=== PATIENT | female | born 1955 | race Hispanic/Latino ===

== ENCOUNTER 2020-05-12 11:30 | Inpatient (IN) | payer OTHER ==
[~2020-05-12] VITALS: Ht 167.6 cm; Wt 96.7 kg
[2020-05-12] MEDS ORDERED: MORPHINE SULFATE INJ 4 MG/ML INJ 1ML IV STA ×2 (12:45→17:22)
[2020-05-12] MEDS ORDERED: PANTOPRAZOLE 40 MG 10ML VIAL IV STA (12:45)
[2020-05-12] MEDS ORDERED: SODIUM CHLORIDE 0.9% 1000ML 1,000 ML IV STA (12:45)
[2020-05-12] MEDS ORDERED: ONDANSETRON HCL INJ 2MG/ML 2ML 2 MG/ML VIAL IV STA ×2 (12:45→17:16)
[2020-05-12 12:54] LABS: BASOPHILS # (AUTO) 0.1 (0.0-0.1); BASOPHILS % 0.4 % (0.0-1.0); EOSINOPHILS % 0.2 % (0.0-6.0); HEMATOCRIT 39.7 % (34.2-44.1); LYMPHOCYTES # (AUTO) 2.6 (1.0-3.2); LYMPHOCYTES % 13.1 % (18.0-39.1); MEAN CORPUSCULAR HEMOGLOBIN 28.5 pg (28-32); MEAN CORPUSCULAR HGB CONC 32.7 g/dL (31-35); MEAN CORPUSCULAR VOLUME 87.1 fL (81-99); MONOCYTES # (AUTO) 0.9 (0.2-0.8); MONOCYTES % 4.6 % (4.4-11.3); NEUTROPHILS # (AUTO) 15.8 (2.1-6.9); NEUTROPHILS % 80.8 % (38.7-80.0); PLATELET COUNT 263 x10e3/uL (140-360); RED BLOOD COUNT 4.56 x10e6/uL (3.6-5.1); RED CELL DISTRIBUTION WIDTH 13.7 % (11.7-14.4)
[2020-05-12 13:00] LABS: INR 1.1; PROTHROMBIN TIME 14.8 seconds (11.9-14.5)
[2020-05-12 13:01] LABS: PARTIAL THROMBOPLASTIN TIME 33.4 seconds (23.8-35.5)
[2020-05-12 13:07] LABS: ALANINE AMINOTRANSFERASE 20 IU/L (0-55); ALBUMIN 4.1 g/dL (3.5-5.0); ALBUMIN/GLOBULIN RATIO 1.2 (0.8-2.0); ALKALINE PHOSPHATASE 76 IU/L (40-150); AMYLASE 31 U/L (25-125); ANION GAP 14.9 mmol/L (8-16); BLOOD UREA NITROGEN 15 mg/dL (7-26); BUN/CREATININE RATIO 20 (6-25); CALCIUM 8.8 mg/dL (8.4-10.2); CARBON DIOXIDE 25 mmol/L (22-29); CHLORIDE 104 mmol/L (98-107); CREATINE KINASE 53 IU/L (29-168); CREATININE, SERUM 0.74 mg/dL (0.57-1.11); EST GLOMERULAR FILTRATION RATE > 60 ML/MIN (60-); GLUCOSE 122 mg/dL (74-118); LIPASE 8 U/L (8-78); POTASSIUM 3.9 mmol/L (3.5-5.1); SODIUM 140 mmol/L (136-145)
--- NOTE | 2020-05-12 13:35 | Diagnostic Imaging Report ---
EXAMINATION: CHEST SINGLE (PORTABLE) INDICATION: Abdominal pain COMPARISON: None FINDINGS: LINES/TUBES:None LUNGS:The lungs are well-inflated. No focal consolidation or pulmonary edema. PLEURA:No pleural effusion or pneumothorax. MEDIASTINUM:The cardiomediastinal silhouette appears normal in size and shape. BONES/SOFT TISSUES:No acute osseous injury. ABDOMEN:No free air under the diaphragm. IMPRESSION: No focal pneumonia or pulmonary edema. Signed by: Breezy Gomez MD on 05/12/2020 1:32 PM
[2020-05-12] MEDS ORDERED: IOPAMIDOL 370 MG/ML 200 ML INFUS..BTL INJ ONE (13:38)
[2020-05-12] MEDS ORDERED: SODIUM CHLORIDE 0.9% 50ML 50 ML ONE (13:38)
--- NOTE | 2020-05-12 15:02 | Diagnostic Imaging Report ---
EXAMINATION: CT of the abdomen and pelvis with contrast. TECHNIQUE: Helical CT images of the abdomen and pelvis were performed from the lung bases to the lesser trochanters after the intravenous administration of 100 cc of Omnipaque 300 and the oral administration of none. Coronal and sagittal reformatted images were obtained. Dose modulation, iterative reconstruction, and/or weight based adjustment of the mA/kV was utilized to reduce the radiation dose to as low as reasonably achievable. COMPARISON: None. CLINICAL HISTORY:Abdominal pain DISCUSSION: ABDOMEN/PELVIS: LOWER THORAX:Unremarkable. HEPATOBILIARY: 1.6 cm enhancing lesion at the dome of the right hepatic lobe. No intra-or extrahepatic biliary ductal dilation. The gallbladder is normal. SPLEEN: No splenomegaly. PANCREAS: No focal masses or ductal dilatation. ADRENALS: No adrenal nodules. KIDNEYS/URETERS: 1 cm hypodensity in the left kidney likely proteinaceous cyst. No obstruction. PELVIC ORGANS/BLADDER: Bladder is normal. Hysterectomy. PERITONEUM/RETROPERITONEUM: 5 cm fluid collection in the pelvic cul-de-sac. LYMPH NODES: No intra-abdominal, retroperitoneal, pelvic or inguinal lymphadenopathy. VESSELS: Unremarkable. GI TRACT: Diverticulosis with inflammatory change involving the sigmoid colon with a 3.2 cm air/fluid collection. Axial image 70. BONES AND SOFT TISSUE: No bony destructive lesions. IMPRESSION: Complicated diverticulitis of the sigmoid colon with a pericolonic 3.2 cm air containing abscess. Additional 5 cm fluid collection/abscess in the pelvic cul-de-sac. After treatment, a screening colonoscopy recommended if not previously performed. A 1.6 cm enhancing nodule in the right superior hepatic lobe likely benign in the absence of known primary malignancy. A MRI of the abdomen with contrast may provide further characterization. Signed by: Dr. Jeffy Lundberg M.D. on 05/12/2020 2:59 PM
[2020-05-12 15:52] LABS: BILIRUBIN,URINE NEGATIVE (NEGATIVE); CLARITY,URINE SL CLOUDY (CLEAR); COLOR,URINE YELLOW (YELLOW); KETONES,URINE TRACE (NEGATIVE); LEUKOCYTE ESTERASE ,URINE NEGATIVE (NEGATIVE); NITRITE,URINE NEGATIVE (NEGATIVE); PROTEIN,URINE DIPSTICK 2+ (NEGATIVE); URINE UROBILINOGEN 0.2 mg/dL (0.2 - 1)
[2020-05-12 16:05] LABS: BACTERIA,URINE MODERATE /HPF; EPITHELIAL CELLS,URINE FEW /LPF
[2020-05-12] MEDS: METRONIDAZOLE 500MG/NS 100ML 100 ML IV SCH (17:37)
[2020-05-12] MEDS: PIPER-TAZ 3.375 GM 50 ML IV SCH ×2 (17:37→23:03)
--- NOTE | 2020-05-12 18:12 | Emergency Department Note ---
History of Present Illnes History of Present Illness Chief Complaint: Abdominal Complaints History of Present Illness This is a 65 year old female pt c/o lower abd pain that starts in llq and radiates across entire abd. pt denies any n/v/d. pt states pain is cramping and takes her breath away. Historian: Patient, Family Member Arrival Mode: Car Manager Lan Required: No Onset (how long ago): day(s) (3) Location: LOWER ABD Quality: PAIN Radiation: Reports non-radiation Severity: moderate Onset quality: gradual Timing of current episode: constant Progression: worsening Chronicity: new Context: Denies recent illness Relieving factors: none Exacerbating factors: none Associated symptoms: Reports denies other symptoms Treatments prior to arrival: none Past Medical/Family History Physician Review I have reviewed the patient's past medical and family history. Any updates have been documented here. Past Medical History Recent Fever: Yes Clinical Suspicion of Infectio: No New/Unexplained Change in Ment: No Past Medical History: Hypertension, Diabetes Past Surgical History: Hysterectomy Social History Smoking Cessation: Never Smoker Counseling Performed: No Alcohol Use: None Any Illegal Drug Use: No TB Exposure/Symptoms: No Physically hurt or threatened: No Family History Family history of heart diseas: No Other Any Pre-Existing Lines (PICC,: No Review of Systems Review of Systems Constitutional: Reports no symptoms EENTM: Reports no symptoms Cardiovascular: Reports no symptoms Respiratory: Reports no symptoms Gastrointestinal: Reports as per HPI Genitourinary: Reports no symptoms Musculoskeletal: Reports no symptoms Integumentary: Reports no symptoms Neurological: Reports no symptoms Psychological: Reports no symptoms Endocrine: Reports no symptoms Hematological/Lymphatic: Reports no symptoms Physical Exam Related Data Allergies: Coded Allergies: No Known Allergies (Unverified , 05/12/20) Triage Vital Signs Vital Signs Date Time Temp Pulse Resp B/P (MAP) Pulse Ox O2 Delivery O2 Flow Rate FiO2 05/12/20 12:00 99.8 102 20 128/65 98 Room Air Vital signs reviewed: Yes Physical Exam CONSTITUTIONAL Constitutional: Present well-developed, Present well-nourished, Present obese HENT HENT: Present normocephalic, Present atraumatic, Present oropharynx clear/moist, Present nose normal HENT L/R: Present left ext ear normal, Present right ext ear normal EYES Eyes: Reports PERRL, Reports conjunctivae normal NECK Neck: Present ROM normal PULMONARY Pulmonary: Present effort normal, Present breath sounds normal CARDIOVASCULAR Cardiovascular: Present regular rhythm, Present heart sounds normal, Present capillary refill normal, Present normal rate GASTROINTESTINAL Abdominal: Present soft, Present bowel sounds normal, Present tender (MODERATE TTP LLQ/SUPRAPUBIC AND LUQ, NO R/G); Absent mass GENITOURINARY Genitourinary: Present exam deferred SKIN Skin: Present warm, Present dry MUSCULOSKELETAL Musculoskeletal: Present ROM normal NEUROLOGICAL Neurological: Present alert, Present oriented x 3, Present no gross motor or sensory deficits PSYCHOLOGICAL Psychological: Present mood/affect normal, Present judgement normal Results Laboratory Result Diagram: 05/12/20 1207 05/12/20 1207 Laboratory Laboratory Tests Test 05/12/20 12:11 05/12/20 12:07 Urine Color Yellow (YELLOW) Urine Clarity Sl cloudy (CLEAR) Urine pH 6.5 (5 - 7) Urine Specific [place] 1.015 (1.010-1.025) Urine Protein 2+ (NEGATIVE) Urine Glucose (UA) Negative (NEGATIVE) Urine Ketones Trace (NEGATIVE) Urine Blood Moderate (NEGATIVE) Urine Nitrite Negative (NEGATIVE) Urine Bilirubin Negative (NEGATIVE) Urine Urobilinogen 0.2 mg/dL (0.2 - 1) Urine Leukocyte Esterase Negative (NEGATIVE) Urine RBC 11-20 /HPF (0-5) Urine WBC None /HPF (0-5) Urine Epithelial Cells Few /LPF (NONE) Urine Bacteria Moderate /HPF (NONE) White Blood Count 19.53 x10e3/uL (4.8-10.8) Red Blood Count 4.56 x10e6/uL (3.6-5.1) Hemoglobin 13.0 g/dL (12.0-16.0) Hematocrit 39.7 % (34.2-44.1) Mean Corpuscular Volume 87.1 fL (81-99) Mean Corpuscular Hemoglobin 28.5 pg (28-32) Mean Corpuscular Hemoglobin Concent 32.7 g/dL (31-35) Red Cell Distribution Width 13.7 % (11.7-14.4) Platelet Count 263 x10e3/uL (140-360) Neutrophils (%) (Auto) 80.8 % (38.7-80.0) Lymphocytes (%) (Auto) 13.1 % (18.0-39.1) Monocytes (%) (Auto) 4.6 % (4.4-11.3) Eosinophils (%) (Auto) 0.2 % (0.0-6.0) Basophils (%) (Auto) 0.4 % (0.0-1.0) Neutrophils # (Auto) 15.8 (2.1-6.9) Lymphocytes # (Auto) 2.6 (1.0-3.2) Monocytes # (Auto) 0.9 (0.2-0.8) Eosinophils # (Auto) 0.0 (0.0-0.4) Basophils # (Auto) 0.1 (0.0-0.1) Absolute Immature Granulocyte (auto 0.18 x10e3/uL (0-0.1) Prothrombin Time 14.8 seconds (11.9-14.5) Prothromb Time International Ratio 1.10 Activated Partial Thromboplast Time 33.4 seconds (23.8-35.5) Sodium Level 140 mmol/L (136-145) Potassium Level 3.9 mmol/L (3.5-5.1) Chloride Level 104 mmol/L (98-107) Carbon Dioxide Level 25 mmol/L (22-29) Anion Gap 14.9 mmol/L (8-16) Blood Urea Nitrogen 15 mg/dL (7-26) Creatinine 0.74 mg/dL (0.57-1.11) Estimat Glomerular Filtration Rate > 60 ML/MIN (60-) BUN/Creatinine Ratio 20 (6-25) Glucose Level 122 mg/dL (74-118) Calcium Level 8.8 mg/dL (8.4-10.2) Total Bilirubin 1.1 mg/dL (0.2-1.2) Aspartate Amino Transf (AST/SGOT) 15 IU/L (5-34) Alanine Aminotransferase (ALT/SGPT) 20 IU/L (0-55) Alkaline Phosphatase 76 IU/L (40-150) Creatine Kinase 53 IU/L (29-168) Creatine Kinase MB 1.00 ng/mL (0-5.0) Troponin I 0.003 ng/mL (0-0.300) Total Protein 7.5 g/dL (6.5-8.1) Albumin 4.1 g/dL (3.5-5.0) Globulin 3.4 g/dL (2.3-3.5) Albumin/Globulin Ratio 1.2 (0.8-2.0) Amylase Level 31 U/L (25-125) Lipase 8 U/L (8-78) Lab results reviewed: Yes Imaging Imaging results reviewed: Yes Procedures 12 Lead ECG Interpretation ECG Interpretation : ECG: ECG 1 Manager Lan: Interpreted by ED physician Date: May 12, 2020 Time: 13:23 Rhythm: sinus rhythm Rate: normal BPM: 96 QRS axis: normal ST segments normal: Yes T wave inversion: III T waves flattening: aVF, V3, V4, V5, V6 Clinical Impression: abnormal ECG Assessment & Plan Medical Decision Making MDM ABD PAIN - CBC, CHEM, UA, CT ABD/PELVIS - EVAL DIVERTICULITIS, RENAL STONE, UTI, COLITIS Reassessment Reassessment ADMIT TO JUICE, SPOKE WITH DR Demetra BRAVO Assessment & Plan Final Impression: (1) Abscess of sigmoid colon due to diverticulitis Depart Disposition: ADMITTED Last Vital Signs Date Time Temp Pulse Resp B/P (MAP) Pulse Ox O2 Delivery O2 Flow Rate FiO2 05/12/20 13:18 98.0 94 16 141/79 98 Room Air Medications in the ED Pantoprazole Sodium 40 mg ONCE STAT IV Last administered on 05/12/20at 13:16; Admin Dose 40 MG; Start 05/12/20 at 12:45; Stop 05/12/20 at 12:59; Status DC Morphine Sulfate 4 mg ONCE STAT IV Last administered on 05/12/20at 13:16; Admin Dose 4 MG; Start 05/12/20 at 12:45; Stop 05/12/20 at 12:58; Status DC Ondansetron HCl 4 mg ONCE STAT IV Last administered on 05/12/20at 13:16; Admin Dose 4 MG; Start 05/12/20 at 12:45; Stop 05/12/20 at 12:59; Status DC Sodium Chloride 1,000 ml @ 0 mls/hr Q0M STAT IV Last administered on 05/12/20at 13:16; Admin Dose 999 MLS/HR; Start 05/12/20 at 12:45; Stop 05/12/20 at 12:51; Status DC Sodium Chloride 50 ml @ STK-MED ONCE .ROUTE ; Start 05/12/20 at 13:38; Stop 05/12/20 at 13:32; Status DC Iopamidol 74,000 mg STK-MED ONCE INJ ; Start 05/12/20 at 13:38; Stop 05/12/20 at 13:32; Status DC Piperacillin Sod/ Tazobactam Sod 50 ml @ 100 mls/hr 0500,1100,1700,2300 IV Last administered on 05/12/20at 17:37; Admin Dose 100 MLS/HR; Start 05/12/20 at 17:20; Stop 05/19/20 at 17:19 Morphine Sulfate 4 mg NOW STAT IV Last administered on 05/12/20at 17:37; Admin Dose 4 MG; Start 05/12/20 at 17:22; Stop 05/12/20 at 17:23; Status DC Ondansetron HCl 4 mg NOW STAT IV Last administered on 05/12/20at 17:37; Admin Dose 4 MG; Start 05/12/20 at 17:16; Stop 05/12/20 at 17:23; Status DC DIGNA LUA MD May 12, 2020 18:12
--- NOTE | 2020-05-12 20:08 | NUR ---
[facility]-answering service paged to contact dr. santos.
--- NOTE | 2020-05-12 20:20 | NUR ---
Sheela DOS SANTOS RN SPEAKING TO DR. Wesley BRAVO AT THIS TIME; NEW ORDERS RECEIVED
[2020-05-12] MEDS: SODIUM CHLORIDE 0.9% 1000ML 1,000 ML IV SCH (20:30)
--- NOTE | 2020-05-12 20:30 | NUR ---
Dr. Camp informed of patients current temperature. Also, informed of all other vital signs. Obtained orders for tylenol suppository 650mg q4h [place] for fever above 101. In addition, informed that a lactic acid was not performed here in the ed. This nurse asked for an order for a lactic acid, Dr. Doherty agreed.
[2020-05-12] MEDS ORDERED: ACETAMINOPHEN 650 MG SUPP PR ONE (20:31)
[2020-05-12] MEDS: ACETAMINOPHEN 650 MG SUPP PR PRN (20:31)
[2020-05-12 22:00] VITALS: BP 129/53
[2020-05-12 23:00] VITALS: BP 129/53
[2020-05-12] MEDS ORDERED: METFORMIN HCL500 MG PO (23:25)
[2020-05-12] MEDS ORDERED: MOBIC15 MG PO (23:25)
[2020-05-12] MEDS ORDERED: LOSARTAN POTASS25 MG PO (23:25)
[2020-05-13] VITALS (8 sets, daily range): BP systolic 62–143; BP diastolic 52–67
[2020-05-13] MEDS: METRONIDAZOLE 500MG/NS 100ML 100 ML IV SCH ×5 (00:37→23:18)
[2020-05-13] MEDS: ACETAMINOPHEN 650 MG SUPP PR PRN ×3 (01:18→17:40)
[2020-05-13] MEDS: ONDANSETRON HCL INJ 2MG/ML 2ML 2 MG/ML VIAL IV PRN ×4 (02:08→22:25)
[2020-05-13] MEDS: MORPHINE SULFATE INJ 4 MG/ML INJ 1ML IV PRN ×4 (02:08→22:26)
[2020-05-13] MEDS: SODIUM CHLORIDE 0.9% 1000ML 1,000 ML IV SCH ×4 (04:50→22:08)
[2020-05-13] MEDS: PIPER-TAZ 3.375 GM 50 ML IV SCH ×3 (05:20→16:52)
[2020-05-13 06:31] LABS: BASOPHILS # (AUTO) 0.1 (0.0-0.1); BASOPHILS % 0.4 % (0.0-1.0); EOSINOPHILS # (AUTO) 0.1 (0.0-0.4); EOSINOPHILS % 0.6 % (0.0-6.0); HEMATOCRIT 36.9 % (34.2-44.1); HEMOGLOBIN 11.9 g/dL (12.0-16.0); LYMPHOCYTES # (AUTO) 3.3 (1.0-3.2); LYMPHOCYTES % 15.8 % (18.0-39.1); MEAN CORPUSCULAR HEMOGLOBIN 28.2 pg (28-32); MEAN CORPUSCULAR HGB CONC 32.2 g/dL (31-35); MEAN CORPUSCULAR VOLUME 87.4 fL (81-99); MONOCYTES # (AUTO) 1.4 (0.2-0.8); MONOCYTES % 6.6 % (4.4-11.3); NEUTROPHILS # (AUTO) 15.6 (2.1-6.9); NEUTROPHILS % 75.9 % (38.7-80.0); PLATELET COUNT 255 x10e3/uL (140-360); RED BLOOD COUNT 4.22 x10e6/uL (3.6-5.1); RED CELL DISTRIBUTION WIDTH 13.7 % (11.7-14.4)
--- NOTE | 2020-05-13 06:46 | NUR ---
RECEIVED BEDSIDE SHIFT REPORT FROM OFF GOING NURSE. PATIENT IS RESTING IN BED, NO ACUTE DISTRESS NOTED AT THIS TIME. CALL LIGHT WITHIN REACH. BED IN THE LOWEST POSITION.
[2020-05-13 06:52] LABS: ALANINE AMINOTRANSFERASE 14 IU/L (0-55); ALBUMIN 3.6 g/dL (3.5-5.0); ALBUMIN/GLOBULIN RATIO 1.2 (0.8-2.0); ALKALINE PHOSPHATASE 78 IU/L (40-150); ANION GAP 13.7 mmol/L (8-16); BLOOD UREA NITROGEN 9 mg/dL (7-26); BUN/CREATININE RATIO 13 (6-25); CALCIUM 8.1 mg/dL (8.4-10.2); CARBON DIOXIDE 24 mmol/L (22-29); CHLORIDE 103 mmol/L (98-107); CREATININE, SERUM 0.68 mg/dL (0.57-1.11); EST GLOMERULAR FILTRATION RATE > 60 ML/MIN (60-); GLUCOSE 110 mg/dL (74-118); POTASSIUM 3.7 mmol/L (3.5-5.1); SODIUM 137 mmol/L (136-145)
[2020-05-13] MEDS ORDERED: DEXTROSE 50% SYRINGE 50 ML IV PRN (09:15)
[2020-05-13] MEDS: INSULIN LISPRO 100 UNIT/1 ML 3ML VIAL SQ SCH ×3 (11:30→21:00)
--- NOTE | 2020-05-13 17:41 | NUR ---
VIVI ARTEAGA WITH ID ROUNDING ON PATIENT. NOTIFIED OF PATIENT'S TEMP OF 101.2. NO NEW ORDERS RECEIVED AT THIS TIME.
--- NOTE | 2020-05-13 19:25 | NUR ---
BEDSIDE SHIFT REPORT GIVEN TO ONCOMING NURSE. PATIENT IS IN STABLE CONDITION, NO ACUTE DISTRESS NOTED AT THIS TIME. CALL LIGHT WITHIN REACH. BED IN THE LOWEST POSITION.
[2020-05-13] MEDS ORDERED: CEFEPIME HCL 1 GM VIAL IV SCH (22:00)
[2020-05-13] MEDS: CEFEPIME 1GM/NS 0.9% 50 ML 50 ML IV SCH (22:08)
--- NOTE | 2020-05-13 23:08 | Consultation ---
DATE OF CONSULTATION: The patient is seen and evaluated. Discussed with Dr. Leung in details. HISTORY OF PRESENT ILLNESS: This is a pleasant 65-year-old female complained of abdominal pain for past three days. The patient is here. PCP was recommended to come to the hospital. The patient's radiology studies include a CT of abdomen and pelvis suggested complicated diverticulitis of the sigmoid colon with pericolic 3.2 cm air containing abscess. Additional 5 cm fluid collection/abscess in the pelvic cul-de-sac. The patient is seen by General surgery and diagnosed with perforated sigmoid diverticulitis and pelvic abscess with a plan for possible surgery tomorrow. Infectious Disease was consulted for the management of the antibiotics. PAST MEDICAL HISTORY: Diabetes, hypertension, and obesity. PAST SURGICAL HISTORY: Hysterectomy. ALLERGIES: NO KNOWN ALLERGIES. MEDICATIONS: Medication list reviewed. From ID point of view, the patient is on Flagyl and Zosyn. LABORATORY STUDIES: White count of 20.54, hemoglobin 11.9, and platelet 255. Sodium 137, potassium 3.7, and creatinine is 0.38. Serology: Coronavirus PCR COVID-19 pending. Blood culture also pending. REVIEW OF SYSTEMS: Some abdominal discomfort which has improved, but no nausea or vomiting. Complaining of fever. No chest pain or shortness of breath. No cough. PHYSICAL EXAMINATION: VITAL SIGNS: Blood pressure is 126/52, temperature is 101.2, pulse 104, and respirations 20. GENERAL: Awake and alert, in no acute distress on room air. Leaning on her right side. No distress. The patient is seen with the nurse. HEENT: Moist. No pallor. No JVD. CV: S1 and S2. CHEST: Equal expansion. Clear to auscultation in no acute distress. ABDOMEN: Obese soft. Discomfort in the left lower quadrant, but no rebound of any other regions of the abdomen. EXTREMITIES: Weak. ASSESSMENT AND PLAN: 1. Perforated diverticulitis. 2. Hypertension. 3. Diabetes. 4. Obesity. 5. Debility. 6. Pain. The patient is going on Flagyl, Zosyn. Await surgery possibly tomorrow. Concern sepsis on admission. Please refer to chart for more information. This case was discussed with Dr. Leung in detail. MD ADRIANA Cm/MOLLY /[id number]
[2020-05-14] VITALS (12 sets, daily range): BP systolic 139–159; BP diastolic 66–95
[2020-05-14] MEDS: SODIUM CHLORIDE 0.9% 1000ML 1,000 ML IV SCH ×3 (02:30→18:29)
[2020-05-14 05:40] LABS: BASOPHILS # (AUTO) 0.1 (0.0-0.1); BASOPHILS % 0.4 % (0.0-1.0); EOSINOPHILS # (AUTO) 0.2 (0.0-0.4); HEMATOCRIT 35.4 % (34.2-44.1); HEMOGLOBIN 11.6 g/dL (12.0-16.0); LYMPHOCYTES # (AUTO) 2.5 (1.0-3.2); LYMPHOCYTES % 14.3 % (18.0-39.1); MEAN CORPUSCULAR HEMOGLOBIN 28.4 pg (28-32); MEAN CORPUSCULAR HGB CONC 32.8 g/dL (31-35); MEAN CORPUSCULAR VOLUME 86.6 fL (81-99); MONOCYTES # (AUTO) 1.3 (0.2-0.8); MONOCYTES % 7.1 % (4.4-11.3); NEUTROPHILS # (AUTO) 13.6 (2.1-6.9); NEUTROPHILS % 76.6 % (38.7-80.0); PLATELET COUNT 251 x10e3/uL (140-360); RED BLOOD COUNT 4.09 x10e6/uL (3.6-5.1); RED CELL DISTRIBUTION WIDTH 13.4 % (11.7-14.4)
[2020-05-14] MEDS: CEFEPIME 1GM/NS 0.9% 50 ML 50 ML IV SCH ×3 (05:41→21:53)
[2020-05-14 06:06] LABS: ALANINE AMINOTRANSFERASE 16 IU/L (0-55); ALBUMIN 3.3 g/dL (3.5-5.0); ALKALINE PHOSPHATASE 89 IU/L (40-150); ANION GAP 14.6 mmol/L (8-16); BLOOD UREA NITROGEN 8 mg/dL (7-26); BUN/CREATININE RATIO 13 (6-25); CALCIUM 8.1 mg/dL (8.4-10.2); CARBON DIOXIDE 22 mmol/L (22-29); CHLORIDE 104 mmol/L (98-107); CREATININE, SERUM 0.62 mg/dL (0.57-1.11); EST GLOMERULAR FILTRATION RATE > 60 ML/MIN (60-); GLUCOSE 100 mg/dL (74-118); POTASSIUM 3.6 mmol/L (3.5-5.1); SODIUM 137 mmol/L (136-145)
--- NOTE | 2020-05-14 06:36 | NUR ---
RECEIVED BEDSIDE SHIFT REPORT FROM OFF GOING NURSE. PATIENT IS IN STABLE CONDITION, NO ACUTE DISTRESS NOTED AT THIS TIME. CALL LIGHT WITHIN REACH. BED IN THE LOWEST POSITION.
[2020-05-14] MEDS: METRONIDAZOLE 500MG/NS 100ML 100 ML IV SCH ×3 (06:43→18:29)
[2020-05-14] MEDS: INSULIN LISPRO 100 UNIT/1 ML 3ML VIAL SQ SCH ×2 (07:30→11:30)
[2020-05-14] MEDS: ACETAMINOPHEN 650 MG SUPP PR PRN (07:45)
[2020-05-14] MEDS ORDERED: HYDROMORPHONE 1MG/1ML INJ IV PRN (08:30)
--- NOTE | 2020-05-14 09:29 | Progress Note ---
DATE: 05/14/2020 SUBJECTIVE: Ms. Pineda is a 65-year-old female with history of diabetes, hypertension, and hyperlipidemia, who was seen in the clinic complaining of severe abdominal pain that started like one week prior to admission. After admission, CT scan showed diverticulitis with perforation and abscess formation. She was started on IV antibiotics, seen by surgeon and she is supposed to go for surgery probably today. PHYSICAL EXAMINATION: GENERAL: Today, she is awake and alert. VITAL SIGNS: Temperature is 99.1, blood pressure 148/80. HEART: Regular rate. LUNGS: Clear to auscultation. ABDOMEN: Distended and diffusely tender. LABORATORY DATA: On the blood work, white count is 17.77, hemoglobin 11.6, and hematocrit 35.4. COVID test came back negative. Potassium is 3.4, creatinine is 0.62, and glucose is 100. Blood culture so far negative. Abdominal and pelvic CT showed a diverticulitis with a 5 cm abscess in the cul-de-sac and a 3.2 cm air containing abscess in the sigmoid colon area. ASSESSMENT AND PLAN: On this patient is, 1. Acute diverticulitis with perforation and abscess formation. 2. Diabetes type 2 with hyperglycemia. 3. Hypertension. 4. Hyperlipidemia. 5. Obesity. The plan at present time is to continue IV fluids. The patient is n.p.o. She is on IV Zosyn and Flagyl. Continue sliding scale with insulin. Probably surgery today and the patient is being followed up by surgeon and by Infectious Disease. All this was discussed in detail with the patient. All questions were answered to satisfaction. Jimena Gonzalez MD CARMELLA/MODL /[id number]
--- NOTE | 2020-05-14 12:17 | NUR ---
PATIENT OFF UNIT FOR SURGERY AT THIS TIME. TELE MONITOR NOTIFIED.
--- NOTE | 2020-05-14 12:21 | NUR ---
PATIENT'S DAUGHTER NOTIFIED OF PATIENT GOING FOR PROCEDURE AND THE PROCEDURE THAT'S BEING DONE.
[2020-05-14] MEDS ORDERED: ROCURONIUM BROMIDE 10 MG/ML 5ML VIAL IV ONE (12:46)
[2020-05-14] MEDS ORDERED: ONDANSETRON HCL INJ 2MG/ML 2ML 2 MG/ML VIAL ONE (12:46)
[2020-05-14] MEDS ORDERED: PROPOFOL IV EMULSION 10 MG/ML 20 ML VIAL ONE (12:46)
[2020-05-14] MEDS ORDERED: DEXAMETHASONE SOD PHOS INJ 4 MG/ML VIAL ONE (12:46)
[2020-05-14] MEDS ORDERED: LIDOCAINE HCL 2% LOCAL INJ 5 ML SDV VIAL INJ ONE (12:46)
[2020-05-14] MEDS ORDERED: NEOSTIGMINE 1 MG/ML 10ML VIAL ONE (12:46)
[2020-05-14] MEDS ORDERED: SEVOFLURANE INHAL SOLN 250 ML PEN BTL ONE (12:46)
[2020-05-14] MEDS ORDERED: GLYCOPYRROLATE INJ 0.2 MG/ML VIAL ONE (12:46)
[2020-05-14] MEDS ORDERED: MIDAZOLAM HCL 2 MG/2 ML VIAL ONE (13:48)
[2020-05-14] MEDS ORDERED: FENTANYL CITRATE/PF 100MCG/2 ML INJ ONE ×2 (13:48→16:24)
[2020-05-14] MEDS: SODIUM CHLORIDE 0.9% 250ML IRRIG IR SCH ×2 (16:15→20:24)
[2020-05-14] MEDS ORDERED: NALOXONE HCL INJ 0.4 MG/ML AMP IV PRN (16:15)
[2020-05-14] MEDS ORDERED: HYDROMORPHONE 0.2MG/ML-SOD CHL 30ML PCA SYRINGE IV PRN (16:15)
[2020-05-14] MEDS ORDERED: DEXTROSE 50% SYRINGE 50 ML IV PRN (16:30)
[2020-05-14] MEDS ORDERED: HYDROMORPHONE 0.2MG/ML-SOD CHL 30ML PCA SYRINGE IV ONE (16:46)
--- NOTE | 2020-05-14 16:50 | NUR ---
PATIENT IS TO BE TRANSFERRED TO ROOM 188 AFTER SURGERY. REPORT CALLED IN TO RECEIVING NURSE @ [id number]. ALL PERSONAL BELONGINGS INCLUDING CELLPHONE TAKEN TO THE ROOM. RECEIVING NURSE AWARE.
[2020-05-14] MEDS: INSULIN REGULAR, HUMAN 100 UNIT/1 ML 3ML VIAL SQ SCH ×2 (18:00→23:58)
--- NOTE | 2020-05-14 18:20 | NUR ---
patient is a transfer from [facility] s/p exlap with colon resection and colostomy. stoma appear pink with no s/s of bleeding. RN encourage patient to make use of her order control clerk blood bank Dilaudid which she did and patient seems relieved. patient ng tube connected to wall suction and IV Fluid resume as ordered. Surgeon was at bedside to see patient.
[2020-05-14] MEDS: PANTOPRAZOLE 40 MG 10ML VIAL IV SCH (18:29)
--- NOTE | 2020-05-14 19:20 | NUR ---
Pt. drowsy, arouses easily. Oxygen on 2L per nasal cannula. Respirations are even and unlabored. NG tube to low suction. IV of Normal saline infusing into a 20 gauge saline lock to her R antecubital area at 125cc/hr. No redness or edema noted at site. Abd. dressing is clean,dry,intact. REGINO bulb is patent and intact draining serousanguineous drainage, compressed.Colostomy to her LUQ is patent,intact. Sifuentes catheter is patent and intact draining clear, yellow urine.
--- NOTE | 2020-05-14 20:16 | Progress Note ---
DATE: SUBJECTIVE: The patient is seen and evaluated. Available labs and notes reviewed. Discussed with Dr. Leung. The patient is just back from operating room and transferred to room 188. REVIEW OF SYSTEMS: Complaining of pain post surgery. The patient has a CONCRETE FOREMAN available. PHYSICAL EXAMINATION: VITAL SIGNS: Temperature 99.6, pulse 78, respirations 20, and blood pressure 144/70. GENERAL: Awake and alert. CV: S1 and S2. CHEST: Equal expansion. Clear to auscultation. No acute distress. ABDOMEN: Surgical wound dressed, on local care. Abdomen is with discomfort. EXTREMITIES: Weak. MEDICATIONS: Medication list reviewed. From ID point of view, the patient is on cefepime and Flagyl. LABORATORY STUDIES: White count improved from 20.54 to 17.77, hemoglobin of 11.6, and platelet count of 251. Sodium 137, potassium 3.6, and creatinine 0.62. Serology; coronavirus PCR not detected, 05/12/2020. MICROBIOLOGY: Blood culture negative. I do not have any cultures available from operating room yet if they sent any. IMAGING: No new radiology studies available. ASSESSMENT AND PLAN: 1. Perforated diverticulitis. The patient is status post exploratory laparotomy with sigmoid colectomy, end colostomy, and Alba pouch by Dr. Wesley Camp. 2. Hypertension. 3. Diabetes. 4. Obesity. 5. Debility. 6. Pain. 7. Antibiotics were changed to Flagyl and cefepime yesterday. Leukocytosis improved. Continue with antibiotics. Monitor the patient clinically and follow up with the labs. Please refer to chart for more information. Dictated by Tylor Bridges PA-C (Al) Kristen Leung MD /MODL /[id number]
--- NOTE | 2020-05-14 22:12 | Operative Report ---
DATE OF PROCEDURE: 05/14/2020 SURGEON: Nitin Camp MD PREOPERATIVE DIAGNOSIS: Perforated sigmoid diverticulitis with pelvic abscess. POSTOPERATIVE DIAGNOSIS: Perforated sigmoid diverticulitis with pelvic abscess. OPERATION PERFORMED: Exploratory laparotomy, sigmoid colectomy, end colostomy with Alba pouch, and drainage of peritoneal abscess and intraabdominal peritoneal lavage. DB2 SYSTEMS PROGRAMMER: Dr. Tre Camp. ANESTHESIA: General endotracheal. COMPLICATIONS: None. ESTIMATED BLOOD LOSS: 200 mL. DESCRIPTION OF PROCEDURE: With the patient lying in bed in the supine position under good general endotracheal anesthesia, the abdomen was prepped with Betadine solution and draped in the usual manner. A lower midline incision was made, it was carried down through the subcutaneous tissue and through the midline fascia. The peritoneum was opened and the abdomen was entered. Upon entering the abdominal cavity, showing anterior abdominal adhesions from the patient's previous lower abdominal surgery was encountered and these were all taken down and the abdomen was freed up and the omentum was retracted. Examination at this point revealed a mass in the sigmoid colon. There was an abscess in the pelvis that was entered and aspirated. The rest of the abdominal exploration appeared to be within normal limits. There was one loop of small bowel that was stuck to the sigmoid colon and this was from the inflammatory mass. After this was done, the left colon was then from the lateral gutter and divided at the level of the descending colon with an application of YAAKOV-75 stapler. The mesentery of the colon was then slowly and carefully divided distally all the way up to the lower sigmoid colon, at which point, colon was below the perforation and in good shape and was thus divided with another application of the [id number]-75 stapler. The mesentery was taken down with the EnSeal and the specimen was sent for pathological examination. After this was done, all the abdomen was then debrided, the abscess cavity was cleaned up. The abdomen was then copiously irrigated and perfect hemostasis was ascertained and all the excess fluid was aspirated. An opening was then made in the left upper quadrant to allow for passage of the colostomy and a cruciate incision was carried down through the rectus fascia. The posterior rectus sheath was opened and the tunnel was then dilated to accept the colon. The colon was then brought out through the colostomy site and brought to the outside without any tension. After this was done, the abdomen was then again irrigated. All the excess fluid was aspirated. A 10 flat Vernon-Vanegas drain was then placed in the cul-de-sac and brought out through the right lower quadrant and sutured to the skin with 2-0 silk and the abdomen was then closed in layers. The peritoneum was closed with a running suture of #1 Vicryl. The midline fascia was closed with a running suture of #1 Vicryl. Subcutaneous tissue was drained with a quarter-inch Bolton drain and approximated with 2-0 chromic and the skin was closed with clips. The colostomy was then isolated and matured using interrupted sutures of 3-0 Vicryl. An appliance was placed. A dressing was applied. The sponge, lap, and needle count were correct. The patient tolerated the procedure well and returned to the recovery room in stable condition. MD POPEYE Laureano/MOLLY /[id number]
--- NOTE | 2020-05-14 22:30 | NUR ---
Instructed pt. to do Incentive Spirometry at least every 2 hours while awake and explained to her the importance for her to do them.
[2020-05-15] VITALS (10 sets, daily range): BP systolic 116–151; BP diastolic 71–84
[2020-05-15] MEDS: SODIUM CHLORIDE 0.9% 250ML IRRIG IR SCH ×6 (00:46→20:31)
[2020-05-15 04:50] LABS: BASOPHILS % 0.2 % (0.0-1.0); HEMATOCRIT 35.7 % (34.2-44.1); HEMOGLOBIN 11.9 g/dL (12.0-16.0); LYMPHOCYTES # (AUTO) 1.6 (1.0-3.2); LYMPHOCYTES % 11.3 % (18.0-39.1); MEAN CORPUSCULAR HEMOGLOBIN 29.2 pg (28-32); MEAN CORPUSCULAR HGB CONC 33.3 g/dL (31-35); MEAN CORPUSCULAR VOLUME 87.5 fL (81-99); MONOCYTES # (AUTO) 1.2 (0.2-0.8); MONOCYTES % 8.3 % (4.4-11.3); NEUTROPHILS # (AUTO) 11.3 (2.1-6.9); NEUTROPHILS % 79.7 % (38.7-80.0); PLATELET COUNT 300 x10e3/uL (140-360); RED BLOOD COUNT 4.08 x10e6/uL (3.6-5.1); RED CELL DISTRIBUTION WIDTH 13.1 % (11.7-14.4)
[2020-05-15 05:11] LABS: BLOOD UREA NITROGEN 13 mg/dL (7-26); BUN/CREATININE RATIO 19 (6-25); CARBON DIOXIDE 23 mmol/L (22-29); CHLORIDE 103 mmol/L (98-107); CREATININE, SERUM 0.68 mg/dL (0.57-1.11); EST GLOMERULAR FILTRATION RATE > 60 ML/MIN (60-); GLUCOSE 133 mg/dL (74-118); SODIUM 138 mmol/L (136-145)
[2020-05-15] MEDS: CEFEPIME 1GM/NS 0.9% 50 ML 50 ML IV SCH ×3 (05:42→21:53)
[2020-05-15] MEDS: INSULIN REGULAR, HUMAN 100 UNIT/1 ML 3ML VIAL SQ SCH ×3 (06:00→18:00)
[2020-05-15] MEDS: SODIUM CHLORIDE 0.9% 1000ML 1,000 ML IV SCH ×3 (06:15→18:00)
[2020-05-15] MEDS: METRONIDAZOLE 500MG/NS 100ML 100 ML IV SCH ×7 (06:16→23:56)
[2020-05-15] MEDS: HYDROMORPHONE 1MG/1ML INJ IV PRN (09:07)
--- NOTE | 2020-05-15 13:28 | NUR ---
SUBJECTIVE: The patient is seen and evaluated. Available labs and notes reviewed. REVIEW OF SYSTEMS: Complaining of pain post surgery. 14 POINT ROS NEG UNLESS OTHERWISE NOTED PHYSICAL EXAMINATION: VITAL SIGNS: Temperature 99.6, pulse 78, respirations 20, and blood pressure 144/70. GENERAL: Awake and alert. CV: S1 and S2. CHEST: Equal expansion. Clear to auscultation. No acute distress. ABDOMEN: Surgical wound dressed, on local care. Abdomen is with discomfort. EXTREMITIES: Weak. MEDICATIONS: Medication list reviewed. From ID point of view, the patient is on cefepime and Flagyl. LABORATORY STUDIES: noted MICROBIOLOGY: Blood culture negative. I do not have any cultures available from operating room yet if they sent any. IMAGING: No new radiology studies available. ASSESSMENT AND PLAN: 1. Perforated diverticulitis. The patient is status post exploratory laparotomy with sigmoid colectomy, end colostomy, and Alba pouch by Dr. Wesley Camp. 2. Hypertension. 3. Diabetes. 4. Obesity. 5. Debility. 6. Pain. Antibiotics were changed to Flagyl and cefepime. Leukocytosis improved. Continue with antibiotics. Monitor the patient clinically and follow up with the labs. Please refer to chart for more information.
[2020-05-15] MEDS: PANTOPRAZOLE 40 MG 10ML VIAL IV SCH (20:16)
[2020-05-16] VITALS (9 sets, daily range): BP systolic 131–174; BP diastolic 78–98
[2020-05-16] MEDS: SODIUM CHLORIDE 0.9% 250ML IRRIG IR SCH ×8 (00:28→22:03)
[2020-05-16] MEDS: SODIUM CHLORIDE 0.9% 1000ML 1,000 ML IV SCH ×3 (05:50→18:00)
[2020-05-16] MEDS: CEFEPIME 1GM/NS 0.9% 50 ML 50 ML IV SCH ×3 (05:51→22:15)
[2020-05-16] MEDS: INSULIN REGULAR, HUMAN 100 UNIT/1 ML 3ML VIAL SQ SCH ×4 (06:00→18:00)
[2020-05-16 06:03] LABS: BASOPHILS # (AUTO) 0.1 (0.0-0.1); BASOPHILS % 0.6 % (0.0-1.0); EOSINOPHILS # (AUTO) 0.2 (0.0-0.4); EOSINOPHILS % 1.9 % (0.0-6.0); LYMPHOCYTES # (AUTO) 2.8 (1.0-3.2); LYMPHOCYTES % 23.8 % (18.0-39.1); MEAN CORPUSCULAR HEMOGLOBIN 28.3 pg (28-32); MEAN CORPUSCULAR HGB CONC 32.4 g/dL (31-35); MEAN CORPUSCULAR VOLUME 87.4 fL (81-99); MONOCYTES # (AUTO) 1.4 (0.2-0.8); NEUTROPHILS # (AUTO) 7.1 (2.1-6.9); PLATELET COUNT 284 x10e3/uL (140-360); RED BLOOD COUNT 3.89 x10e6/uL (3.6-5.1); RED CELL DISTRIBUTION WIDTH 13.5 % (11.7-14.4)
[2020-05-16 06:23] LABS: ANION GAP 12.7 mmol/L (8-16); BLOOD UREA NITROGEN 13 mg/dL (7-26); BUN/CREATININE RATIO 22 (6-25); CALCIUM 8.2 mg/dL (8.4-10.2); CARBON DIOXIDE 27 mmol/L (22-29); CHLORIDE 103 mmol/L (98-107); CREATININE, SERUM 0.58 mg/dL (0.57-1.11); EST GLOMERULAR FILTRATION RATE > 60 ML/MIN (60-); GLUCOSE 108 mg/dL (74-118); POTASSIUM 3.7 mmol/L (3.5-5.1); SODIUM 139 mmol/L (136-145)
[2020-05-16] MEDS: METRONIDAZOLE 500MG/NS 100ML 100 ML IV SCH ×3 (06:33→18:23)
[2020-05-16] MEDS ORDERED: METOPROLOL TARTRATE INJ 1 MG/ML VIAL IV PRN (10:45)
--- NOTE | 2020-05-16 11:07 | NUR ---
INFECTIOUS DISEASE PROGRESS NOTE DR. FEDERICO LANDIS SUBJECTIVE: The patient is seen and evaluated. Available labs and notes reviewed. REVIEW OF SYSTEMS: Complaining of pain post surgery. 14 POINT ROS NEG UNLESS OTHERWISE NOTED PHYSICAL EXAMINATION: VITAL SIGNS: reviewed GENERAL: Awake and alert. CV: S1 and S2. CHEST: Equal expansion. Clear to auscultation. No acute distress. ABDOMEN: Surgical wound dressed, on local care. Abdomen is with discomfort. EXTREMITIES: Weak. MEDICATIONS: Medication list reviewed. From ID point of view, the patient is on cefepime and Flagyl. LABORATORY STUDIES: noted MICROBIOLOGY: Blood culture negative. I do not have any cultures available from operating room yet if they sent any. IMAGING: No new radiology studies available. ASSESSMENT AND PLAN: 1. Perforated diverticulitis. The patient is status post exploratory laparotomy with sigmoid colectomy, end colostomy, and Alba pouch by Dr. Wesley Camp. 2. Hypertension. 3. Diabetes. 4. Obesity. 5. Debility. 6. Pain. Antibiotics were changed to Flagyl and cefepime. Leukocytosis improved. Continue with antibiotics. Monitor the patient clinically and follow up with the labs.
[2020-05-16] MEDS: ACETAMINOPHEN 650 MG SUPP PR PRN ×2 (12:00→14:55)
--- OUTSIDE RECORDS SUMMARY | 2020-05-16 15:44 | XMS REPORT | Continuity of Care Document ---
Author Author [facility] t Organization [facility] Address [address] [place] [address] Dr. Tripp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 Allergies, Adverse Reactions, Alerts This patient has no known allergies or adverse reactions. Medications This patient has no known medications. Procedures This patient has no known procedures. Results Test Description Test Time Test Comments Results Result Comments Source CT ABDOMEN/PELVIS W 2020-05-12 14:49:00 [place] [address] Patient Name: ROBERTO IVEY MR #: [id number] : 1955 Age/Sex: 65/F Req #: [id number] Adm Physician: Ordered by: DIGNA LUA MD Report #: [id number] Location: ER Room/Bed: Procedure: [id number] CT/CT ABDOMEN/PELVIS W Exam Date: 05/12/20 Exam Time: 1400 REPORT STATUS: Signed EXAMINATION: CT of the abdomen and pelvis with contrast. TECHNIQUE: Helical CT images of the abdomen and pelvis were performed from the lung bases to the lesser trochanters after the intravenous administration of 100 cc of Omnipaque 300 and the oral administr ation of none. Coronal and sagittal reformatted images were obtained. Dose modulation, iterative reconstruction, and/or weight based adjustment of the mA/kV was utilized to reduce the radiation dose to as low as reasonably achievable. COMPARISON: None. CLINICAL HISTORY:Abdominal pain DISCUSSION: ABDOMEN/PELVIS: LOWER THORAX:Unremarkable. HEPATOBILIARY: 1.6 cm enhancing lesion at the dome of the right hepatic lobe. No intra-or extrahepatic biliary ductal dilation. The gallbladder is normal. SPLEEN: No splenomegaly. PANCREAS: No focal masses or ductal dilatation. ADRENALS: No adrenal nodules. KIDNEYS/URETERS: 1 cm hypodensity in the left kidney likely proteinaceous cyst. No obstruction. PELVIC ORGANS/BLADDER: Bladder is normal. Hysterectomy. PERITONEUM/RETROPERITONEUM: 5 cm fluid collection in the pelvic cul-de-sac. LYMPH NODES: No intra-abdominal, retroperitoneal, pelvic or inguinal lymphadenopathy. VESSELS: Unremarkable. GI TRACT: Diverticulosis with inflammatory change involving the sigmoid colon with a 3.2 cm air/fluid collection. Axial image 70. BONES AND SOFT TISSUE: No bony destructive lesions. IMPRESSION: Complicated diverticulitis of the sigmoid colon with a pericolonic 3.2 cm air containing abscess. Additional 5 cm fluid collection/abscess in the pelvic cul-de-sac. After treatment, a screening colonoscopy recommended if not previously performed. A 1.6 cm enhancing nodule in the right superior hepatic lobe likely benign in the absence of known primary malignancy. A MRI of the abdomen with contrast may provide further characterization. Signed by: Dr. Brian Kovacs M.D. on 05/12/2020 2:59 PM Dictated By: BRIAN KOVACS MD 58 Transcribed By: GUS on 05/12/201458 COPY TO: DIGNA LUA MD CHEST SINGLE (PORTABLE) 2020-05-12 13:31:00 [place] [address] Patient Name: ROBERTO IVEY MR #: [id number] : 1955 Age/Sex: 65/F Req #: [id number] Adm Physician: Ordered by: DIGNA LUA MD Report #: [id number] Location: ER Room/Bed: Procedure: [id number] DX/CHEST SINGLE (PORTABLE) Exam Date: 05/12/20 Exam Time: 1310 REPORT STATUS: Signed EXAMINATION: CHEST SINGLE (PORTABLE) INDICATION: Abdominal pain COMPARISON: None FINDINGS: LINES/TUBES:None LUNGS:The lungs are well-inflated. No focal consolidation or pulmonary edema. PLEURA:No pleural effusion or pneumothora x. MEDIASTINUM:The cardiomediastinal silhouette appears normal in size and shape. BONES/SOFT TISSUES:No acute osseous injury. ABDOMEN:No free air under the diaphragm. IMPRESSION: No focal pneumonia or pulmonary edema. Signed by: Giovanna Oleary MD on 05/12/2020 1:32 PM Dictated By: GIOVANNA OLEARY MD 133 Transcribed By: GUS on 05/12/20 133 COPY TO: DIGNA LUA MD
[2020-05-16] MEDS: PANTOPRAZOLE 40 MG 10ML VIAL IV SCH (17:17)
[2020-05-16] MEDS: ONDANSETRON HCL INJ 2MG/ML 2ML 2 MG/ML VIAL IV PRN ×2 (17:30→23:10)
--- NOTE | 2020-05-16 19:30 | NUR ---
Pt. alert and oriented x3. Oxygen on 2L per nasal cannula. Respirations are even and unlabored. NG tube to low suction draining light brown drainage. Abd. dressing is clean,dry,intact. REGINO bulb is compressed draining serousanguinous drainage. IV of Normal saline infusing into 20 gauge to her R wrist at 125 cc/hr. No redness or edema noted at site. Sifuentes catheter is patent and intact draining barbara urine.
--- NOTE | 2020-05-16 20:24 | NUR ---
Report given to Heaven KAMARA.
--- NOTE | 2020-05-16 20:40 | NUR ---
PT ARRIVED BY HOSPITAL BED, AAOX3, RR EVEN AND NON-LABORED, O2 BY NC AT 2L. NO S/SX OF DISTRESS NOTED. DRESSING TO ANTERIOR ABD NOTED TO BE CDI WITH COLOSTOMY AND REGINO DRAIN. NGT CONNECTED TO LCS. ORIENTED PT TO HOSPITAL ROOM, CALL LIGHT, PHONE, BED CONTROLS AND LIGHTS. LEFT PT LAYING SEMI FOWLERS IN BED, BED IN LOW LOCKED POSITION, SIDE RAILS UPX2, CALL LIGHT AND PHONE WITHIN REACH.
--- NOTE | 2020-05-16 21:00 | NUR ---
Transferred pt. to room 101 via bed.
[2020-05-16] MEDS: HYDROMORPHONE 1MG/1ML INJ IV PRN (23:10)
[2020-05-17] VITALS (8 sets, daily range): BP systolic 153–173; BP diastolic 81–99
[2020-05-17] MEDS: METRONIDAZOLE 500MG/NS 100ML 100 ML IV SCH ×4 (00:37→17:24)
[2020-05-17] MEDS: SODIUM CHLORIDE 0.9% 250ML IRRIG IR SCH ×6 (02:19→22:15)
[2020-05-17] MEDS: ONDANSETRON HCL INJ 2MG/ML 2ML 2 MG/ML VIAL IV PRN ×3 (03:28→21:22)
[2020-05-17] MEDS: HYDROMORPHONE 1MG/1ML INJ IV PRN ×6 (03:28→21:27)
[2020-05-17] MEDS: SODIUM CHLORIDE 0.9% 1000ML 1,000 ML IV SCH ×3 (03:28→21:20)
[2020-05-17 05:15] LABS: BASOPHILS # (AUTO) 0.1 (0.0-0.1); BASOPHILS % 0.5 % (0.0-1.0); EOSINOPHILS # (AUTO) 0.3 (0.0-0.4); EOSINOPHILS % 2.5 % (0.0-6.0); HEMATOCRIT 34.5 % (34.2-44.1); HEMOGLOBIN 11.1 g/dL (12.0-16.0); LYMPHOCYTES # (AUTO) 2.4 (1.0-3.2); LYMPHOCYTES % 20.7 % (18.0-39.1); MEAN CORPUSCULAR HEMOGLOBIN 28.1 pg (28-32); MEAN CORPUSCULAR HGB CONC 32.2 g/dL (31-35); MEAN CORPUSCULAR VOLUME 87.3 fL (81-99); MONOCYTES # (AUTO) 1.2 (0.2-0.8); MONOCYTES % 10.2 % (4.4-11.3); NEUTROPHILS # (AUTO) 7.5 (2.1-6.9); NEUTROPHILS % 65.2 % (38.7-80.0); PLATELET COUNT 292 x10e3/uL (140-360); RED BLOOD COUNT 3.95 x10e6/uL (3.6-5.1); RED CELL DISTRIBUTION WIDTH 13.2 % (11.7-14.4)
[2020-05-17] MEDS: CEFEPIME 1GM/NS 0.9% 50 ML 50 ML IV SCH ×3 (05:26→22:26)
[2020-05-17 05:45] LABS: ANION GAP 13.5 mmol/L (8-16); BLOOD UREA NITROGEN 10 mg/dL (7-26); BUN/CREATININE RATIO 19 (6-25); CALCIUM 8.4 mg/dL (8.4-10.2); CARBON DIOXIDE 27 mmol/L (22-29); CHLORIDE 102 mmol/L (98-107); CREATININE, SERUM 0.53 mg/dL (0.57-1.11); EST GLOMERULAR FILTRATION RATE > 60 ML/MIN (60-); GLUCOSE 109 mg/dL (74-118); POTASSIUM 3.5 mmol/L (3.5-5.1); SODIUM 139 mmol/L (136-145)
[2020-05-17] MEDS: INSULIN REGULAR, HUMAN 100 UNIT/1 ML 3ML VIAL SQ SCH ×4 (06:00→18:00)
--- NOTE | 2020-05-17 06:30 | NUR ---
SPOKE WITH MD Wesley BRAVO CONCERNING ORDERS TO D/C CADE POD2. RECEIVED IN REPORT FROM CU NURSE THAT SHELLY YATES WAS MADE AWARE AND OK TO KEEP CADE. WAS INFORMED BY MD BRAVO OK TO KEEP CADE TILL PATIENT MORE MOBILE AND OK TO START PHYSICAL THERAPY TO HELP MOBILIZE PATIENT.
--- NOTE | 2020-05-17 09:42 | Progress Note ---
DATE: 05/17/2020 SUBJECTIVE: Ms. Pineda is a 65-year-old female with history of diabetes, hypertension, and hyperlipidemia, who came to the clinic complaining of severe abdominal pain. She was sent to the emergency room. CT scan showed diverticulitis with perforation and abscess formation. The patient underwent on Sunday surgery, where she had a sigmoid colectomy, colostomy with Alba pouch and drainage of the abscess. PHYSICAL EXAMINATION: GENERAL: Today, she is awake and alert. She is feeling a little better. VITAL SIGNS: Temperature is 98.2, blood pressure 158/81. HEART: Regular rate. LUNGS: Clear to auscultation. ABDOMEN: Distended, on a dressing, having some bloody drainage there. LABORATORY DATA: On the blood work, white count is 11.44, hemoglobin is 11.1, and hematocrit is 34.1. COVID test came back negative. Potassium 3.5, creatinine is 0.53, and glucose is 109. Blood cultures came back negative. ASSESSMENT AND PLAN: On this patient is, 1. Acute diverticulitis with perforation and abscess formation status post sigmoid colostomy with Alba pouch and drainage of the abscess. 2. Diabetes type 2 with hyperglycemia. 3. Hypertension. 4. Hyperlipidemia. 5. Obesity. PLAN: At the present time is to continue IV antibiotics. A sliding scale with insulin. Continue to monitor wound. Dr. Camp and Dr. Leung on the case, following the patient with me. The overall prognosis of the patient remains guarded. All this was discussed with the patient. All questions were answered to satisfaction. MD CARMELLA Hammond/MODL /[id number]
--- NOTE | 2020-05-17 11:45 | NUR ---
Patient up from bed walking with PT, Not in any distress, dressing intact, no distress noted
--- NOTE | 2020-05-17 13:09 | NUR ---
Nutrition Intervention Note RD Recommendation(s) for Physician: - Pt NPO x 5 days, recommend initiating TPN of Dextrose 30%/500 ml, AA10%/500 ml, Lipids 25 g/day, standard lytes, add MVI, trace, and thiamine at 45 ml/hr. If labs WNL, advance TPN to goal rate of 75 ml/hr (to provide 1443 kcal, 252 gm dextrose, and 84 gm protein per day at goal rate) - If TPN initiated, recommend discontinuing IVF - Recommend checking BMP with Mg and Phos daily, replace low lytes as needed - As feasible, ADAT to goal of 1500 ADA, GI Soft diet - Recommend Glucerna shakes TID when diet advanced Plan of Care: RD following, monitoring for tolerance and adequacy. TPN and diet rec's. Nutrition reason for involvement: Diet- NPO x [address] Assessment 05/17: 65 YOF admitted for abdominal pain found to have a perforation of the sigmoid colon and abscess due to acute diverticulitis. Pt evaluated today per NPO x 5 days. Pt working with PT at time of visits, observed walking the hallway- appears well nourished. Pt s/p sigmoid colostomy with Alba pouch and drainage of abscess on 05/14. Pt having BMs per ostomy. Currently on NS IVF. If unable to advance diet soon, recommend initiating TPN. TPN rec's provided, order form placed in chart for MD to order if agreeable. Chart reviewed. Will continue to monitor. Principal Problems/Diagnoses: abscess of sigmoid colon due to diverticulitis and perforation PMH: DM, HTN, obesity GI: LBM 05/16 per colostomy Skin: abdominal incision, REGINO drain site, colostomy site Labs: 05/17: Na 139, K 3.5, Cl 102, CO2 27, BUN 10, Cr 0.53, Gluc 109, Ca 8.4 Meds: zofran, dilaudid, abx, protonix, insulin IVF: NS at 125 ml/hr Ht: 66 in Wt: 213.25 lb BMI: 34.4 kg/m2 IBW: 130 lb Malnutrition Evaluation (05/17/20) The patient does not meet criteria for a specified degree of malnutrition at this time. Will re-evaluate at follow-up as appropriate. Unable to complete assessment at this time. Energy intake: <50% of estimated energy requirements for >5 days Weight loss: unable to assess Fat loss: none, ample skinfold thickness to upper arms Muscle loss: none observed, shoulder round Supporting Evidence: Fluid accumulation: none Functional Status: not assessed Nutrition Prescription (Diet Order): NPO x 5 days Estimated Nutritional Needs: 2919-6968 calories/day (22-25 kcal/kg IBW) 89-118 g protein/day (1.5-2 g pro/kg IBW) Diet Adequacy: Not meeting calorie needs, Not meeting protein needs Diet Tolerance: pending Diet Education Needs Assessment: Diet education not indicated, patient on temporary/transition diet. Nutrition Care Level: High- NPO x 5 days Nutrition Diagnosis: Inadequate energy and protein intake intake related to recent GI surgery as evidenced by NPO x 5 days. Goal: Patient will meet 75-100% of estimated needs by follow up Progress: N/A Interventions: -Fiber, CHO modified diet, Commercial beverage, Composition, Rate, Route, IVF, Prescription medications, Survival information, Recommended Modifications, Collaboration with other providers Monitoring/Evaluation: -Total energy intake, Total protein intake, Formula/Solution, IVF, Prescription medication, Modified diet, Liquid supplement, Weight change Signed: Ani Wallace RD, LD, [facility]
--- NOTE | 2020-05-17 17:15 | NUR ---
INFECTIOUS DISEASE PROGRESS NOTE DR. KRISTEN LANDIS SUBJECTIVE: The patient is seen and evaluated. Available labs and notes reviewed. REVIEW OF SYSTEMS: Complaining of pain post surgery. 14 POINT ROS NEG UNLESS OTHERWISE NOTED PHYSICAL EXAMINATION: VITAL SIGNS: reviewed GENERAL: Awake and alert. CV: S1 and S2. CHEST: Equal expansion. Clear to auscultation. No acute distress. ABDOMEN: Surgical wound dressed, on local care. Abdomen is with discomfort. EXTREMITIES: Weak. MEDICATIONS: Medication list reviewed. From ID point of view, the patient is on cefepime and Flagyl. LABORATORY STUDIES: noted MICROBIOLOGY: Blood culture negative. I do not have any cultures available from operating room yet if they sent any. IMAGING: No new radiology studies available. ASSESSMENT AND PLAN: 1. Perforated diverticulitis. The patient is status post exploratory laparotomy with sigmoid colectomy, end colostomy, and Alba pouch by Dr. Wesley Camp. 2. Hypertension. 3. Diabetes. 4. Obesity. 5. Debility. 6. Pain. Flagyl and cefepime, can d/c with oral Cipro and Flagyl when cleared by others Leukocytosis improved. Ellie Brar MSN, RADIOLOGIC TECHNOLOGIST MAMMOGRAM, [facility]- Kristen Lanids M.D.
[2020-05-17] MEDS: PANTOPRAZOLE 40 MG 10ML VIAL IV SCH (17:20)
[2020-05-17] MEDS ORDERED: TYLENOL # 31 EA PO (18:04)
--- NOTE | 2020-05-17 18:48 | NUR ---
Removed Sifuentes and NG tube patient tolerated well, Due to void, no distress noted
--- NOTE | 2020-05-17 19:20 | NUR ---
BEDSIDE SHIFT REPORT RECEIVED FROM DAY RN. PT IS ALERT AND ORINETED X3. PT REMAINS NPO. HOB IS ELEVATED. TELE #20 SR. ABDOMINAL INCISION DRY AND INTACT. REGINO DRAIN CHARGED- DRAINING SEROUS SANGUINOUS DRAINAGE. PT VOID PER BEDPAN X2. SCD ON LOWER EXTREMITIES. 20 G PIV IN RT HAND SITE HEALTHY. NS INFUSING AT 100 ML /HR. CALL LIGHT WITHIN REACH. BED IN LOW POSITION.
[2020-05-18] VITALS (8 sets, daily range): BP systolic 151–165; BP diastolic 74–91
[2020-05-18] MEDS: METRONIDAZOLE 500MG/NS 100ML 100 ML IV SCH ×4 (00:30→17:45)
[2020-05-18] MEDS: HYDROMORPHONE 1MG/1ML INJ IV PRN ×5 (00:54→20:35)
[2020-05-18] MEDS: SODIUM CHLORIDE 0.9% 250ML IRRIG IR SCH (02:15)
[2020-05-18] MEDS: SODIUM CHLORIDE 0.9% 1000ML 1,000 ML IV SCH ×2 (04:19→14:37)
[2020-05-18] MEDS: CEFEPIME 1GM/NS 0.9% 50 ML 50 ML IV SCH ×3 (05:34→22:00)
[2020-05-18] MEDS: INSULIN REGULAR, HUMAN 100 UNIT/1 ML 3ML VIAL SQ SCH ×4 (06:00→18:00)
--- NOTE | 2020-05-18 07:00 | NUR ---
RECEIVED PATIENT RESTING IN BED NO S/S OF DISTRESS. BED LOW, WHEELS LOCKED, SIDE RAILS X2. CALL LIGHT IN REACH WILL CONTINUE TO MONITOR PATIENT.
--- NOTE | 2020-05-18 08:50 | Progress Note ---
DATE: 05/18/2020 SUBJECTIVE: Ms. Pineda is a 65-year-old female with history of diabetes, hypertension, and hyperlipidemia, who came to the clinic to see me complaining of severe abdominal pain. I sent her to the emergency room, where she had a CAT scan that showed diverticulitis with perforation and abscess formation. She underwent surgery last Sunday. She had to have a sigmoid colectomy, colostomy with Alba pouch and drainage of the abscess. PHYSICAL EXAMINATION: GENERAL: Today, she is awake and alert. VITAL SIGNS: Temperature is 98.3, blood pressure is 154/74. HEART: Regular rate. LUNGS: Clear to auscultation. ABDOMEN: Distended. She has colostomy. She has a drainage too. LABORATORY DATA: On the blood work; white count is 11.44, hemoglobin is 11.1, hematocrit 34.5. Glucose is 104. COVID test came back negative. Blood culture so far negative. Abdominal and pelvic CT on admission showed diverticulitis with abscess formation. ASSESSMENT: 1. Acute diverticulitis with perforation and abscess, status post sigmoid colectomy, colostomy with Alba pouch, and drainage of the abscess. 2. Diabetes type 2 with hyperglycemia. 3. Hypertension. 4. Hyperlipidemia. 5. Obesity. PLAN: At the present time is to keep the patient n.p.o., IV antibiotics, sliding scale with insulin. Continue wound care. Continue to monitor drainage. All this was discussed with the patient. All questions were answered to satisfaction. MD CARMELLA Hammond/MOLLY /[id number]
--- NOTE | 2020-05-18 13:24 | Progress Note ---
DATE: SUBJECTIVE: Ms. Pineda is feeling better. There are no new complaints. NG tube is out. The patient who comes in with abdominal pain, was found to have diverticulitis, perforation and abscess. She currently had colostomy with Alba pouch and drainage of an abscess. LABORATORY DATA: Her blood cultures are negative. Her white count is 11.4, hemoglobin 11. Sodium 139, potassium 3.5, creatinine 0.53. She is currently on metronidazole and cefepime. PHYSICAL EXAMINATION: GENERAL: She is currently alert, oriented. VITAL SIGNS: Stable, afebrile. HEENT: She is not icteric. NECK: Supple. CHEST: Crackles. HEART: S1 and S2. ABDOMEN: Soft. IMPRESSION: Diverticulitis with abscess, status post surgery, status post perforation, status post sigmoid colectomy, diabetes mellitus type 2 with neuropathy, hyperglycemia, hypertension, hyperlipidemia, obesity. Continue IV antibiotic. We will monitor the drainage. We will keep her IV antibiotic for now. She may need to be on IV antibiotic for 2 weeks because of her obesity and diabetes. We will follow. MD ADRIANA Cm/MOLLY /[id number]
[2020-05-18] MEDS: PANTOPRAZOLE 40 MG 10ML VIAL IV SCH (16:49)
--- NOTE | 2020-05-18 19:30 | NUR ---
BEDSIDE SHIFT REPORT RECEIVED FROM DAY RN. PT IS A&O X3. RESPIRATIONS ARE EVEN AND UNLABORED. O2 2L PER N/C ON. TELE ON. ABDOMINAL DRESSING IS DRY AND INTACT. REGINO DRAINING SEROUS SANGUINOUS DRAINAGE. COLOSTOMY OUTPUT - SMALL AMOUNT OF BLOODY DRAINAGE. DR FINNEY AWARE. PURWICK ON. 20G RT FOEARM. SITE HEALTHY. PT SLEEPY BUT RESPNSIVE TO VERBAL STIMULI. NS INFUSING AT 100 ML/HR. SITE HEALTHY. CALL LIGHT WITHIN REACH. BED IN LOW POSITION.
[2020-05-18] MEDS: ONDANSETRON HCL INJ 2MG/ML 2ML 2 MG/ML VIAL IV PRN (20:34)
[2020-05-19] VITALS (8 sets, daily range): BP systolic 133–165; BP diastolic 73–84
[2020-05-19] MEDS: SODIUM CHLORIDE 0.9% 1000ML 1,000 ML IV SCH ×3 (00:26→18:57)
[2020-05-19] MEDS: METRONIDAZOLE 500MG/NS 100ML 100 ML IV SCH ×5 (00:26→23:49)
[2020-05-19] MEDS: ONDANSETRON HCL INJ 2MG/ML 2ML 2 MG/ML VIAL IV PRN (02:15)
[2020-05-19] MEDS: HYDROMORPHONE 1MG/1ML INJ IV PRN ×3 (02:20→09:54)
[2020-05-19] MEDS: CEFEPIME 1GM/NS 0.9% 50 ML 50 ML IV SCH ×3 (06:00→22:17)
[2020-05-19] MEDS: INSULIN REGULAR, HUMAN 100 UNIT/1 ML 3ML VIAL SQ SCH ×4 (06:00→18:00)
--- NOTE | 2020-05-19 07:00 | NUR ---
RECEIVED PATIENT RESTING IN BED NO S/S OF DISTRESS. BED LOW, WHEELS LOCKED, SIDE RAILS X2. CALL LIGHT IN REACH WILL CONTINUE TO MONITOR PATIENT.
--- NOTE | 2020-05-19 09:20 | Progress Note ---
DATE: 05/19/2020 SUBJECTIVE: Ms. Pineda is a 65-year-old female with history of hypertension, hyperlipidemia, diabetes, came to the clinic, complaining of abdominal pain. She was found to have diverticulitis with perforation and abscess. She underwent sigmoid colectomy, colostomy with Alba pouch, and drainage of the abscess and she was started on clear liquid diet. She is on IV antibiotics and wound care. PHYSICAL EXAMINATION: GENERAL: She is awake and alert. She is feeling better. VITAL SIGNS: Temperature is 98.5, blood pressure 143/84. HEART: Regular rate. LUNGS: Clear to auscultation. ABDOMEN: Distended and soft. She has a colostomy on the left flank area. LABORATORY DATA: White count 11.44, hemoglobin 11.1, hematocrit 34.5, sugar is 104. COVID test negative. Blood cultures came back negative. ASSESSMENT: 1. Acute diverticulitis with perforation and abscess, status post sigmoid colectomy and colostomy with Alba pouch and drainage of the abscess. 2. Diabetes type 2 with hyperglycemia. 3. Hypertension. 4. Hyperlipidemia. 5. Obesity. PLAN: At present time, she is to start clear liquid diet, advance as tolerated. Continue IV antibiotics. ADA diet and sliding scale with insulin. Continue other more home medications. Continue wound care. All this was discussed in detail with the patient. All questions were answered to satisfaction. As per Dr. Leung, the patient may need 2 weeks of IV antibiotics. MD CARMELLA Hammond/MODL /[id number]
[2020-05-19] MEDS: HYDROCODONE/APAP 7.5MG-325MG 1 EA TAB PO PRN ×2 (15:44→22:21)
--- NOTE | 2020-05-19 16:32 | NUR ---
INFECTIOUS DISEASE PROGRESS NOTE DR. KRISTEN LANDIS SUBJECTIVE: The patient is seen and evaluated. Available labs and notes reviewed. REVIEW OF SYSTEMS: Complaining of pain post surgery. 14 POINT ROS NEG UNLESS OTHERWISE NOTED PHYSICAL EXAMINATION: VITAL SIGNS: reviewed GENERAL: Awake and alert. CV: S1 and S2. no s3, s4 CHEST: Equal expansion. Clear to auscultation. No acute distress. ABDOMEN: Surgical wound dressed, on local care. Abdomen is with discomfort. EXTREMITIES: Weak, MEDICATIONS: Medication list reviewed. From ID point of view, the patient is on cefepime and Flagyl. LABORATORY STUDIES: noted MICROBIOLOGY: Blood culture negative. I do not have any cultures available from operating room yet if they sent any. IMAGING: No new radiology studies available. ASSESSMENT AND PLAN: 1. Perforated diverticulitis. The patient is status post exploratory laparotomy with sigmoid colectomy, end colostomy, and Alba pouch by Dr. Wesley Camp. 2. Hypertension. 3. Diabetes. 4. Obesity. 5. Debility. 6. Pain. Flagyl and cefepime, given the persistent leukocytosis, we will ask CM to set up 2 weeks of Rocephin 2gm QD. Oral Flagyl 500mg po TID x2 weeks see me in clinic in 2 weeks lElie Brar MSN, GRADUATE INTERNSHIP, AGACNP-BC Kristen Landis M.D.
[2020-05-19] MEDS: PANTOPRAZOLE 40 MG 10ML VIAL IV SCH (16:59)
--- NOTE | 2020-05-19 18:57 | NUR ---
WALKING ROUNDS PERFORMED, RECEIVED PT LAYING SEMI FOWLERS IN BED, AAOX3, RR EVEN AND NON-LABORED, ON ROOM AIR. NO S/SX OF DISTRESS NOTED. COLOSTOMY NOTED TO BE INTACT TO (R) ANTERIOR ABD. INCISION TO ANTERIOR ABD CDI, OPEN TO AIR. REGINO DRAIN TO (R) LOWER ANTERIOR ABD INTACT DRAINING TO BULB SUCTION. LOWER ANTERIOR DRESSING FOR ANSHUL DRAIN CDI. LEFT PT LAYING SEMI FOWLERS IN BED, BED IN LOW LOCKED POSITION, SIDE RAILS UPX2, CALL LIGHT AND PHONE WITHIN REACH.
[2020-05-20] VITALS (8 sets, daily range): BP systolic 124–156; BP diastolic 73–97
[2020-05-20] MEDS: HYDROCODONE/APAP 7.5MG-325MG 1 EA TAB PO PRN ×3 (04:38→21:32)
[2020-05-20] MEDS: CEFEPIME 1GM/NS 0.9% 50 ML 50 ML IV SCH ×3 (05:39→21:31)
[2020-05-20] MEDS: INSULIN REGULAR, HUMAN 100 UNIT/1 ML 3ML VIAL SQ SCH ×4 (06:00→18:00)
[2020-05-20] MEDS: SODIUM CHLORIDE 0.9% 1000ML 1,000 ML IV SCH ×2 (06:18→17:43)
[2020-05-20] MEDS: METRONIDAZOLE 500MG/NS 100ML 100 ML IV SCH ×4 (06:18→23:54)
--- NOTE | 2020-05-20 10:36 | Progress Note ---
DATE: 05/20/2020 SUBJECTIVE: Ms. Pineda is a 65-year-old female with history of diabetes, hypertension, hyperlipidemia, came to the clinic complaining of abdominal pain. She was sent to the emergency room. Abdominal CT showed diverticulitis with perforation and abscess. The patient underwent sigmoid colectomy, colostomy with Alba pouch and drainage of the abscess. She was started already on the liquid diet and advance as tolerated. She is still on IV antibiotics. PHYSICAL EXAMINATION: GENERAL: Today, she is awake and alert. VITAL SIGNS: Temperature is 98, blood pressure 156/81. HEART: Regular rate. LUNGS: Clear to auscultation. ABDOMEN: Distended and soft. She has a colostomy and still has stitches. LABORATORY DATA: On the blood work, white count 11.44, hemoglobin is 11.1, hematocrit 34.5. COVID test came back negative. Sugar 104. Blood culture, so far negative. ASSESSMENT: 1. Acute diverticulitis with perforation and abscess, status post sigmoid colectomy and colostomy with Alba pouch and drainage of the abscesses. 2. Diabetes type 2 with hyperlipidemia. 3. Hypertension. 4. Hyperlipidemia. 5. Obesity. PLAN: At the present time, she is to continue clear liquid diet and start advancing as tolerated, IV antibiotics, ADA diet, sliding scale with insulin. She needs ostomy training. So we need an ostomy nurse to teach her how to change her bag. All this was discussed with the patient. All questions were answered to satisfaction. As per Infectious Disease, she will need a two weeks of IV antibiotics. MD CARMELLA Hammond/MODL /[id number]
--- NOTE | 2020-05-20 12:41 | NUR ---
ORDERS FOR HOME HEALTH CARE SKILLED NURSE, COLOSTOMY EDUCATION, PT/OT EVAL AND TREAT AND COLOSTOMY SUPPLIES CHOICE LETTER SIGNED FOR [facility] STAFF PH: [phone] FAX: [phone] SPOKE WITH JAMES; CLINICALS FAXED AND CONFIRMATION REC'D, STATES THEY ARE IN NETWORK WITH PT'S INSURANCE COPY OF CHOICE LETTER TO PT ALONG WITH MY BUSINESS CARD CONFIRMED ADDRESS AND PHONE NUMBER CORRECT ON FACE SHEET PT'S DAUGHTER ETTA VILLEGAS WILL BE WITH PT AND SPEAKS ROMANSH
--- NOTE | 2020-05-20 12:46 | NUR ---
REC'D CALL BACK FROM JAMES AT [facility] STATING THEY ARE NOT IN NETWORK WITH PT'S INSURANCE
--- NOTE | 2020-05-20 12:56 | Progress Note ---
DATE: SUBJECTIVE: Mrs. Pineda is doing better. There are no new complaints. No nausea. No vomiting. REVIEW OF SYSTEMS: Otherwise, HEENT: Negative. PULMONARY: Negative. CARDIAC: Negative. PHYSICAL EXAMINATION: GENERAL: She is currently alert, oriented. VITAL SIGNS: Stable, afebrile. HEENT: She is not icteric. NECK: Supple. CHEST: Clear. HEART: S1, S2. ABDOMEN: Soft. Bowel sounds present. EXTREMITIES: No edema. SKIN: No rash. The wound looked good at present time. The plan for her to be discharged home on Sunday. IMPRESSION: 1. Acute diverticulitis, perforation, status post abscess, status post sigmoid colectomy, status post Alba pouch and drainage of abscess. Doing well with current antibiotic. Can be discharged home with oral Cipro and Flagyl to finish 14 days. 2. Diabetes mellitus. 3. Hyperlipidemia. 4. Hypertension. 5. Obesity. Discussed with the medical team. Discussed with the patient. MD ADRIANA Cm/MOLLY /[id number]
--- NOTE | 2020-05-20 16:27 | NUR ---
Nutrition Intervention Note RD Recommendation(s) for Physician: - As feasible, recommend advancing to goal of 1500 ADA, GI Soft diet - Recommend Glucerna shakes with meals Plan of Care: RD following, monitoring for tolerance and adequacy, oral supplement recommendation Nutrition reason for involvement: follow up RD Assessment 05/20: Follow up. Chart reviewed. Pt is currently on a full liquid diet. Pt primarily speaks Tongan; therefore, cultural link was used to translate information. Pt reports consuming about 50% of her liquids and is tolerating the diet. Pt mentioned she usually weighs 210 lbs. Pt currently has a weight of 213 lbs in chart; therefore, no weight loss is evident. Recommend Glucerna nutrition supplement with meals for added nutrition. Will continue to monitor. 05/17: 65 YOF admitted for abdominal pain found to have a perforation of the sigmoid colon and abscess due to acute diverticulitis. Pt evaluated today per NPO x 5 days. Pt working with PT at time of visits, observed walking the hallway- appears well nourished. Pt s/p sigmoid colostomy with Alba pouch and drainage of abscess on 05/14. Pt having BMs per ostomy. Currently on NS IVF. If unable to advance diet soon, recommend initiating TPN. TPN rec's provided, order form placed in chart for MD to order if agreeable. Chart reviewed. Will continue to monitor. Principal Problems/Diagnoses: abscess of sigmoid colon due to diverticulitis and perforation PMH: DM, HTN, obesity GI: round/soft/tender abdomen, colostomy Skin: abdominal incision, colostomy site Labs: 05/17: Na 139, K 3.5, Cl 102, CO2 27, BUN 10, Cr 0.53, Gluc 109, Ca 8.4 Meds: antibiotics, protonix, dilaudid, zofran, metoprolol, insulin Ht: 66 in Wt: 213.25 lb BMI: 34.4 kg/m2 IBW: 130 lb Malnutrition Evaluation (05/20/20) The patient does not meet criteria for a specified degree of malnutrition at this time. Will re-evaluate at follow-up as appropriate. Energy intake: <50% of estimated energy requirements for >5 days Weight loss: no weight loss is evident Fat loss: none, ample skinfold thickness to upper arms Muscle loss: none observed, shoulder round Supporting Evidence: Fluid accumulation: none Functional Status: not assessed Nutrition Prescription (Diet Order): full liquids Estimated Nutritional Needs: 6371-7974 calories/day (22-25 kcal/kg IBW) 89-118 g protein/day (1.5-2 g pro/kg IBW) Diet Adequacy: Not meeting calorie needs, Not meeting protein needs Diet Tolerance: tolerating diet Diet Education Needs Assessment: RD provided pt with diabetic and low fiber diet education handouts in Tongan. Nutrition Care Level: high Nutrition Diagnosis: Inadequate energy and protein intake related to decreased ability to consume sufficient energy as evidenced by insufficient energy intake from diet compared to needs Goal: Patient will meet 75-100% of estimated needs by follow up Progress: goal not met Interventions: -Fiber, CHO modified diet, Commercial beverage, diet education Monitoring/Evaluation: -Total energy intake, Total protein intake, Modified diet, Liquid supplement, Weight change Signed: Duyen Lind RD, LD
[2020-05-20] MEDS: PANTOPRAZOLE 40 MG 10ML VIAL IV SCH (17:43)
[2020-05-21] VITALS (7 sets, daily range): BP systolic 138–150; BP diastolic 61–82
[2020-05-21] MEDS: HYDROCODONE/APAP 7.5MG-325MG 1 EA TAB PO PRN ×2 (04:05→17:24)
[2020-05-21] MEDS: CEFEPIME 1GM/NS 0.9% 50 ML 50 ML IV SCH ×2 (05:15→17:24)
[2020-05-21] MEDS: SODIUM CHLORIDE 0.9% 1000ML 1,000 ML IV SCH ×2 (05:15→17:24)
[2020-05-21] MEDS: INSULIN REGULAR, HUMAN 100 UNIT/1 ML 3ML VIAL SQ SCH ×4 (05:33→17:25)
[2020-05-21] MEDS: METRONIDAZOLE 500MG/NS 100ML 100 ML IV SCH ×3 (05:56→17:25)
--- NOTE | 2020-05-21 07:51 | NUR ---
SPOKE WITH SAE AT [facility] PHONE: [phone] FAX: [phone]; CONFIRMED THAT THEY ARE IN NETWORK WITH PT'S INS. NEW CHOICE LETTER SIGNED AND COPY TO PT FAXED CLINICALS TO ABOVE NUMBER; CONFIRMATION REC'D PLAN DC ON SAT PER DR BRAVO
--- NOTE | 2020-05-21 09:46 | Discharge Summary ---
HISTORY: Ms. Pineda is a 65-year-old female with history of diabetes, hypertension, hyperlipidemia, seen in the clinic with abdominal pain, found to have diverticulitis with perforation and abscess, underwent sigmoid colectomy, colostomy with Alba pouch, and drainage of the abscess, and the plan is to discharge her home today or tomorrow on p.o. Cipro and Flagyl. PHYSICAL EXAMINATION: GENERAL: Today, she is awake and alert. She is feeling better. VITAL SIGNS: Temperature is 98.3, blood pressure 141/77. HEART: Regular rate. LUNGS: Clear to auscultation. ABDOMEN: Distended and soft. She has a colostomy. LABORATORY DATA: On the blood work; white count is 11.44, hemoglobin 11.1, hematocrit 34.5. Glucose 104. COVID test came back negative. Blood cultures negative. DISCHARGE DIAGNOSES: 1. Acute diverticulitis with perforation and abscess, status post sigmoid colectomy and colostomy with Alba pouch and drainage of the abscesses. 2. Diabetes type 2 with hyperglycemia. 3. Hypertension. 4. Hyperlipidemia. 5. Obesity. PLAN: At the present time, if she gets cleared by surgeon, she is going to go home on Cipro and Flagyl for 14 days. She is to continue ADA diet and continue all her home medications. Today, they are going to have ostomy teaching with her daughter to teach her how to manage the ostomy. She needs to follow up with me next week. She is to call me or come back to the emergency room if any recurrent problem. Please see home medication reconciliation list. All this was discussed with the patient. All questions were answered to satisfaction. MD CARMELLA Hammond/MOLLY /[id number]
--- NOTE | 2020-05-21 10:13 | NUR ---
CM CONFIRMED WITH [facility] THEY THEY CAN ACCEPT PT INFORMED PLANNED DC TODAY OR TOMORROW CM PROVIDED PT WITH RW AT BEDSIDE PAPERWORK COMPLETED AND SIGNED BY PT AND DR Demetra BRAVO NURSE NOTIFIED THAT HOME HEALTH AND RW DONE
--- NOTE | 2020-05-21 10:39 | NUR ---
INFECTIOUS DISEASE PROGRESS NOTE DR FEDERICO LANDIS SUBJECTIVE: Mrs. Pineda is doing better. There are no new complaints. No nausea. No vomiting. REVIEW OF SYSTEMS: Otherwise, HEENT: Negative. PULMONARY: Negative. CARDIAC: Negative. ALL 14 POINT ROS NEG UNLESS OTHERWISE NOTED PHYSICAL EXAMINATION: GENERAL: She is currently alert, oriented. VITAL SIGNS: Stable, afebrile. HEENT: She is not icteric. NECK: Supple. CHEST: Clear. HEART: S1, S2. ABDOMEN: Soft. Bowel sounds present. EXTREMITIES: No edema. SKIN: No rash. The plan for her to be discharged home on Sunday. IMPRESSION: 1. Acute diverticulitis, perforation, status post abscess, status post sigmoid colectomy, status post Alba pouch and drainage of abscess. Doing well with current antibiotic. 2. Diabetes mellitus. 3. Hyperlipidemia. 4. Hypertension. 5. Obesity. Can be discharged home with oral Cipro and Flagyl to finish 14 days. Discussed with the medical team. Discussed with the patient. Ellie Brar MSN, SIZING MACHINE AND DRIER OPERATOR, AGACNP-BC Federico Landis M.D.
[2020-05-21] MEDS: PANTOPRAZOLE 40 MG 10ML VIAL IV SCH (17:24)
--- NOTE | 2020-05-21 18:00 | NUR ---
Spoke with Dr. Wolff whojanusz is covering fro Dr. Gonzalez and let him know that pt has been cleared by Dr. Camp. Received orders fro her to discharge.
[2020-05-21] MEDS ORDERED: CIPRO500 MG PO (18:21)
[2020-05-21] MEDS ORDERED: FLAGYL250 MG PO (18:22)
--- NOTE | 2020-05-21 18:55 | NUR ---
RECEIVED BEDSIDE SHIFT REPORT FROM PREVIOUS NURSE. CALL LIGHT WITHIN REACH. PATIENT IN CHAIR. DAUGHTER AT BEDSIDE.
--- NOTE | 2020-05-21 19:55 | NUR ---
PATIENT'S IV WAS TAKEN OUT WITH CATH INTACT. PATIENT AND DAUGHTER WAS GIVEN PRESCRIPTIONS AND DISCHARGE INSTRUCTIONS. FOLLOW UP APPOINTMENTS AND HOME HEALTH INFORMATION WAS HIGHLIGHTED ON DISCHARGE PAPERWORK. PATIENT AND DAUGHTER VERBALIZED UNDERSTANDING. PATIENT LEFT WITH NO PAIN OR DISTRESS. DAUGHTER AND PATIENT COLLECTED ALL THE BELONGINGS. PATIENT USED THE BATHROOM BEFORE LEAVING AND HAD NO PROBLEMS. PATIENT LEFT VIA WHEELCHAIR TO HER DAUGHTER'S CAR AND GOT INTO THE CAR WITH NO PROBLEMS.
== END 2020-05-21 20:08 | disposition home health service (06) | DRG 854 ==
LOC: ER 12:02 → ERHOLD 17:53 → MED/SURG3 22:00 → IMCU 05-14 18:06 → MED/SURG 05-16 20:41
PROVIDERS: ADMIT Internal Medicine; ATTEND Internal Medicine
PROC: 0D1N0Z4 Bypass Sigmoid Colon to Cutaneous, Open Approach (ICD-10-PCS; principal; 2020-05-14 11:00)
DX: A41.9 Sepsis, unspecified organism (principal); K57.20 Diverticulitis of large intestine with perforation and abscess without bleeding; E11.65 Type 2 diabetes mellitus with hyperglycemia; I10 Essential (primary) hypertension; Z11.59 Encounter for screening for other viral diseases; E66.9 Obesity, unspecified; Z68.34 Body mass index [BMI] 34.0-34.9, adult; D64.9 Anemia, unspecified; E78.5 Hyperlipidemia, unspecified; E11.40 Type 2 diabetes mellitus with diabetic neuropathy, unspecified
CPT/HCPCS: 36415; 71045; 74177; 80048; 80053; 81001; 82150; 82550; 82553; 82948; 83605; 83690; 84484; 85025; 85610; 85730; 87040; 88307; 93005; 97139; 99284; J0692; J1100; J1170; J1817; J2001; J2250; J2270; J2405; J2543; J2710; J3010; J7030; Q9967